=== PATIENT | female | born 1995 | race American Indian/Alaskan Native ===

== ENCOUNTER 2017-10-07 03:16 | Emergency (ER) | payer SELFPAY ==
[2017-10-07 03:30] VITALS: BP 124/79
--- NOTE | 2017-10-07 04:08 | XRay Report ---
FINAL REPORT EXAM: XR CHEST 1V AP HISTORY: chest pain, possible foreign body TECHNIQUE: AP portable view(s) of the chest obtained. PRIORS: None. FINDINGS: No mediastinal shift. Cardiac silhouette is not enlarged. No radiodense foreign body, pneumothorax, effusion, or focal pulmonary opacity identified. No acute skeletal findings. IMPRESSION: No radiodense foreign body or acute pulmonary finding identified.
== END 2017-10-07 06:24 | disposition left against medical advice (07) ==
LOC: ED 03:16
DX: R07.89 Other chest pain (principal); Z53.21 Procedure and treatment not carried out due to patient leaving prior to being seen by health care provider
CPT/HCPCS: 71045